=== PATIENT | female | born 2000 | race Caucasian/White ===

== ENCOUNTER 2021-12-20 13:19 | Outpatient (CLI) | payer BC, SELFPAY ==
--- NOTE | ~2021-12-20 | US_ITS ---
US breast BI limited DATE: 12/20/2021 14:19 INDICATION: Breast lumps TECHNIQUE: Real-time imaging targeted at left breast 11:00 position 6 cm from nipple and right breast mid chest wall 12 cm from nipple at the areas of clinical complaint. COMPARISON: None FINDINGS: Right breast: No suspicious mass is identified at the area of clinical complaint at the area of clini geri complaint at the right breast/mid chest wall 12 cm from the nipple. Left breast:: At 11:00 6 cm from the nipple at the area of palpable mass is a peanut-shaped 1.5 x 2.5 cm solid mass with through transmission and posterior enhancement. No internal vascularity is noted. 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 IMPRESSION: BI-RADS Category 2: Benign Reviewed, dictated and finalized at [facility]. Reviewed, dictated and finalized at location [facility]. IMPRESSION: BI-RADS Category 2: Benign
== END 2021-12-20 13:20 | disposition home or self-care (01) ==
LOC: ANHIMG 13:21
PROVIDERS: PCP Family Medicine; Visit Provider Physician Assistant
DX: N63.0 Unspecified lump in unspecified breast (principal)
CPT/HCPCS: 76642

== ENCOUNTER 2024-06-26 13:52 | Outpatient (CLI) | payer BC, SELFPAY ==
--- NOTE | ~2024-06-26 | XR_ITS ---
EXAMINATION: XR ankle RT min 3V DATE: 06/26/2024 14:23 INDICATION: Right ankle injury with lateral sided pain and bruising TECHNIQUE: Anteroposterior, oblique, mortise, and lateral views of the right ankle were obtained. COMPARISON: None. FINDINGS: Small flake-like minimally distracted avulsion fracture fragment at the tip of the lateral malleolus. Alignment is otherwise normal. No other fractures identified. Joint spaces are normal. No ankle join t effusion. Mild soft tissue swelling about the lateral malleolus. IMPRESSION: 1. Minimally distracted small flake-like avulsion fracture fragment at the distal tip of the lateral malleolus. Reviewed, dictated and finalized at location [facility]. [employer] IMPRESSION: 1. Minimally distracted small flake-like avulsion fracture fragment at the dist al tip of the lateral malleolus.
== END 2024-06-26 13:53 | disposition home or self-care (01) ==
PROVIDERS: PCP Family Medicine; Visit Provider Student in an Organized Health Care Education/Training Program
DX: S99.911A Unspecified injury of right ankle, initial encounter (principal); X58.XXXA Exposure to other specified factors, initial encounter
CPT/HCPCS: 73610